=== PATIENT | male | born 2000 | race Native Hawaiian/Other Pacific Islander ===

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

== ENCOUNTER 2018-05-14 23:11 | Emergency (ER) | payer OTHER ==
[2018-05-14 23:22] VITALS: TEMP 98.3; O2SAT 99
[2018-05-15 00:56] LABS: HEMOGLOBIN 17.2 g/dL (12.0-18.0); MEAN CELL VOLUME 88.1 fl (80.0-94.0); MEAN CORPUSCULAR HEMOGLOBIN 30.9 pg (27.0-31.0); RBC 5.57 Mil/uL (4.40-5.90); RED CELL DISTRIBUTION WIDTH 12.7 % (11.5-14.5); WHITE BLOOD COUNT 5.4 K/uL (4.8-10.8)
[2018-05-15 01:10] LABS: ALB/GLOB RATIO 1.5 (1.0-2.1); ALBUMIN 4.7 g/dL (3.5-5.0); ALT/SGPT 41 U/L (21-72); AST/SGOT 95 U/L (17-59); BLOOD UREA NITROGEN 11 mg/dl (9-20); CALCIUM 10.1 mg/dL (8.4-10.2); GFR AFRICAN-AMERICAN > 60; GFR NON-AFRICAN AMERICAN > 60
--- NOTE | 2018-05-15 01:33 | ED PDOC ---
HPI: General Adult Time Seen by Provider: 05/15/18 00:28 Chief Complaint (Nursing): GI Problem Chief Complaint (Provider): GI Problem History Per: Patient History/Exam Limitations: no limitations Onset/Duration Of Symptoms: Days (x3) Current Symptoms Are (Timing): Still Present Additional Complaint(s): David Pedroza is a 17 year old male with no past medical history who is presenting to the ED with complaints of brown watery diarrhea, onset 3 days ago. Patient states that he came to the ED due to increasing frequency and in the past 24 hours he reports he had 5 episodes of diarrhea. He also states that he had a fever yesterday of 38 degrees Celsius but denies any fevers today as well as abdominal pain. Patient admits to traveling to [place] in mid-March and reports that he is taking a [place] medication for diarrhea with no relief of symptoms. Of note, patient has not had any abdominal surgeries in the past. PMD: none provided Past Medical History Reviewed: Historical Data, Nursing Documentation, Vital Signs Vital Signs: Last Vital Signs Temp 98.3 F 05/15/18 03:22 Pulse 74 05/15/18 03:22 Resp 18 05/15/18 03:22 BP 111/67 05/15/18 03:22 Pulse Ox 99 05/15/18 03:22 - Medical History PMH: No Chronic Diseases - Surgical History Surgical History: No Surg Hx - Family History Family History: States: Unknown Family Hx - Social History Current smoker - smoking cessation education provided: No Alcohol: None Drugs: Denies - Home Medications Home Medications: Ambulatory Orders Medication Instructions Recorded Loperamide [Imodium] 2 mg PO PRN PRN #12 cap 05/15/18 - Allergies Allergies/Adverse Reactions: Allergies Allergy/AdvReac Type Severity Reaction Status Date / Time coffee (Coffea arabica) Allergy RASH Verified 06/12/17 21:07 Review of Systems ROS Statement: Except As Marked, All Systems Reviewed And Found Negative Constitutional: Positive for: Fever Gastrointestinal: Positive for: Diarrhea. Negative for: Abdominal Pain Physical Exam - Reviewed Nursing Documentation Reviewed: Yes Vital Signs Reviewed: Yes - Physical Exam Appears: Positive for: Well, Non-toxic, No Acute Distress Head Exam: Positive for: ATRAUMATIC, NORMAL INSPECTION, NORMOCEPHALIC Skin: Positive for: Normal Color, Warm, DRY Eye Exam: Positive for: EOMI, Normal appearance, PERRL ENT: Positive for: Normal ENT Inspection Neck: Positive for: Normal, Painless ROM Cardiovascular/Chest: Positive for: Regular Rate, Rhythm. Negative for: Murmur Respiratory: Positive for: Normal Breath Sounds. Negative for: Respiratory Distress Gastrointestinal/Abdominal: Positive for: Normal Exam, Soft. Negative for: Tenderness Back: Positive for: Normal Inspection. Negative for: L CVA Tenderness, R CVA Tenderness Extremity: Positive for: Normal ROM. Negative for: Pedal Edema, Deformity Neurologic/Psych: Positive for: Alert, Oriented. Negative for: Motor/Sensory Deficits - Laboratory Results Result Diagrams: 05/15/18 00:52 05/15/18 00:52 - ECG O2 Sat by Pulse Oximetry: 99 (RA) Pulse Ox Interpretation: Normal Medical Decision Making Medical Decision Making: Time: 00:45 A/P: --17 year old male with diarrhea --Patient is well appearing and comfortable with normal vital signs --No concern for invasive diarrhea --Will check labs and recommend Imodium Labs were reviewed with no clinically significant abnormalities. Upon provider evaluation patient is medically stable, and requires no further treatment in the ED at this time. Patient will be discharged home. Counseling was provided and all questions were answered regarding diagnosis and need for follow up with PMD. There is agreement to discharge plan. Return if symptoms persist or worsen. Scribe Attestation: Documented by Aleshia Obrien, acting as a scribe for Andres Alexandre MD. Provider Scribe Attestation: All medical record entries made by the Scribe were at my direction and personally dictated by me. I have reviewed the chart and agree that the record accurately reflects my personal performance of the history, physical exam, medical decision making, and the department course for this patient. I have also personally directed, reviewed, and agree with the discharge instructions and disposition. Disposition - Clinical Impression Clinical Impression: Diarrhea - Disposition Referrals: Celo Hardin [Outside] Disposition Time: 03:00 Condition: STABLE Prescriptions: Loperamide [Imodium] 2 mg PO PRN PRN #12 cap PRN Reason: Diarrhea Instructions: Diarrhea in Adolescents and Adults Forms: Cleo Wilson (Stateless)
[2018-05-15 02:53] LABS: BILIRUBIN,DIRECT 0.5 mg/ml (0.0-0.4)
[2018-05-15 03:27] VITALS: BP 111/67; PULSE 74; RESP 18
== END 2018-05-15 03:33 | disposition home or self-care (01) ==
LOC: H.ER 23:11
DX: R19.7 Diarrhea, unspecified (principal)